=== PATIENT | female | born 1950 | race Caucasian/White ===

== ENCOUNTER 2019-01-15 19:57 | Emergency (ER) | payer MEDICARE, OTHER ==
[2019-01-15 20:08] VITALS: BP 135/78
--- NOTE | 2019-01-15 20:46 | EDM.PDOC ---
ED HPI GENERAL MEDICAL PROBLEM - General Chief Complaint: Abdominal Pain Stated Complaint: LOWER ABDOMINAL PAIN Time Seen by Provider: 01/15/19 20:15 Source of Information: Reports: Patient History Limitations: Reports: No Limitations - History of Present Illness INITIAL COMMENTS - FREE TEXT/NARRATIVE: Patient comes in the emergency department with right upper gastric pain. Patient states it started approximately 4 days ago. She denies it getting worse since the pain started she states that it is a palpable pain in her stay daily breath. Patient to her arm or lower externally. Radiation to the flank area. Patient states that she has been utilizing multiple canes at home to help with ambulation related to a back injury. She is awaiting for back surgery. She states that she's been leaning the cane on her right side of her abdomen to help with support when she gets tired. Patient denies any falls or other injuries. Denies any nausea, vomiting, diarrhea, SOB at rest, chest pain, or changes in vision or edema. Onset: Gradual Location: Reports: Abdomen Quality: Reports: Ache Severity: Mild Improves with: Reports: Immobilization Worsens with: Reports: Movement Associated Symptoms: Reports: No Other Symptoms Right Upper Anterior Abdomen Pain Score (Numeric/FACES): 6 - Related Data Allergies Allergy/AdvReac Type Severity Reaction Status Date / Time diclofenac sodium Allergy Hallucinati Verified 01/15/19 20:03 [From [employer]th[employer]] ons doxepin Allergy Rash Verified 01/15/19 20:03 meperidine HCl [From Demerol] Allergy Hallucinati Verified 01/15/19 20:03 ons misoprostol [From [employer]] Allergy Hallucinati Verified 01/15/19 20:03 ons pregabalin [From Lyrica] Allergy Hallucinati Verified 01/15/19 20:03 ons tramadol Allergy Rash Verified 01/15/19 20:03 Home Meds: Home Meds Acetaminophen [Tylenol Extra Strength] 1,000 mg PO Q6H PRN 02/22/15 [History] Allopurinol [Zyloprim] 300 mg PO DAILY 02/22/15 [History] Calcium Carbonate [Tums] 500 mg PO Q2HR PRN 02/22/15 [History] Docusate Sodium/Sennosides [Senokot-S] 1 each PO ASDIRECTED 02/22/15 [History] Hydrocodone/Acetaminophen [Hydrocodon-Acetaminophen 5-325] 1 each PO Q4H PRN 05/31 [History] Levothyroxine [Synthroid] 100 mcg PO ACBREAKFAST 02/22/15 [History] Loratadine [Claritin] 10 mg PO DAILY 02/22/15 [History] Prochlorperazine Maleate [Compazine] 10 mg PO Q6H PRN 02/22/15 [History] Ranitidine [Zantac] 75 mg PO DAILY 02/22/15 [History] Sulfamethoxazole/Trimethoprim [Bactrim Ds Tablet] 1 each PO BID 02/22/15 [ History] valACYclovir HCl [Valtrex] 500 mg PO BID 02/22/15 [History] Past Medical History Endocrine/Metabolic History: Reports: Hypothyroidism - Past Surgical History Musculoskeletal Surgical History: Reports: Other (See Below) Other Musculoskeletal Surgeries/Procedures:: back surgery Social & Family History - Tobacco Use Smoking Status *Q: Never Smoker - Recreational Drug Use Recreational Drug Use: No ED ROS GENERAL - Review of Systems Review Of Systems: See Below Constitutional: Reports: No Symptoms HEENT: Reports: No Symptoms Respiratory: Reports: No Symptoms Cardiovascular: Reports: No Symptoms Endocrine: Reports: No Symptoms GI/Abdominal: Reports: Abdominal Pain. Denies: Anorexia, Black Stool, Bloody Stool, Constipation, Diarrhea, Decreased Appetite, Distension, Flatus, Melena : Reports: No Symptoms Musculoskeletal: Reports: Back Pain (chronic since 1988), Muscle Pain Skin: Reports: No Symptoms Neurological: Reports: No Symptoms Psychiatric: Reports: No Symptoms Hematologic/Lymphatic: Reports: No Symptoms Immunologic: Reports: No Symptoms ED EXAM, GI/ABD - Physical Exam Exam: See Below Exam Limited By: No Limitations General Appearance: Alert, WD/WN, No Apparent Distress Neck: Normal Inspection, Supple, Non-Tender, Full Range of Motion Respiratory/Chest: No Respiratory Distress, Lungs Clear, Normal Breath Sounds, No Accessory Muscle Use, Chest Non-Tender Cardiovascular: Normal Peripheral Pulses, Regular Rate, Rhythm, No Edema GI/Abdominal Exam: Normal Bowel Sounds, Soft, No Organomegaly, No Distention, Pelvis Stable, Tender Extremities: Normal Inspection, Normal Range of Motion, Non-Tender, No Pedal Edema, Normal Capillary Refill Neurological: Alert, Oriented Psychiatric: Normal Affect, Normal Mood Skin Exam: Warm, Dry, Intact, Normal Color Course - Vital Signs Last Recorded V/S: Last Vital Signs Temp 36.1 C 01/15/19 20:05 Pulse 92 01/15/19 20:05 Resp 18 01/15/19 20:05 BP 135/78 01/15/19 20:05 Pulse Ox 95 01/15/19 20:05 - Orders/Labs/Meds Orders: Active Orders 24 hr Category Date Time Status Chest 1V Frontal [CR] Stat Exams 01/15/19 20:30 Taken AMYLASE [CHEM] Stat Lab 01/15/19 20:36 Received CBC WITH AUTO DIFF [HEME] Stat Lab 01/15/19 20:36 Results COMPREHENSIVE METABOLIC PN,CMP [CHEM] Stat Lab 01/15/19 20:36 Received LIPASE [CHEM] Stat Lab 01/15/19 20:36 Received SEDIMENTATION RATE AUTO [HEME] Stat Lab 01/15/19 20:36 Results UA W/MICROSCOPIC [URIN] Stat Lab 01/15/19 20:11 Received Labs: Laboratory Tests 01/15/19 Range/Units 20:36 WBC 6.3 (4.0-10.0) x10^3/uL RBC 3.90 L (4.00-5.50) x10^6/uL Hgb 11.3 L (12.0-16.0) g/dL Hct 35.2 (33.0-47.0) % MCV 90.3 (78.0-93.0) fL MCH 29.0 (26.0-32.0) pg MCHC 32.1 (32.0-36.0) g/dL RDW Coeff of Yamila 14.6 (10.0-15.0) % Plt Count 228 D (130-400) x10^3/uL Neut % (Auto) 39.2 L (50.0-80.0) % Lymph % (Auto) 48.6 (25.0-50.0) % Jasper % (Auto) 9.4 (2.0-11.0) % Eos % (Auto) 2.5 (0.0-4.0) % Baso % (Auto) 0.3 (0.2-1.2) % - Re-Assessments/Exams Free Text/Narrative Re-Assessment/Exam: 01/15/19 21:08 Pt states after passing some gas in the ER the discomfort has gotten better. She is ready to go home and put ice on the area and rest. Departure - Departure Time of Disposition: 21:20 Disposition: Home, Self-Care 01 Condition: Good Clinical Impression: Muscle pain - Discharge Information *PRESCRIPTION DRUG MONITORING PROGRAM REVIEWED*: Not Applicable *COPY OF PRESCRIPTION DRUG MONITORING REPORT IN PATIENT ALPA: Not Applicable Instructions: Muscle Pain, Adult Referrals: PCP,Unknown [Ordering Only Provider] - Forms: ED Department Discharge Additional Instructions: 1. rest 2. Can put ice or heat on the area 3-4 times a daily for 20 minutes at a time 3. Can take Ibuprofen or Tylenol for the discomfort 4. Try not to use the cane as a bracing point on that side of your abdomen. 5. Follow up with your PCP as needed 6. Your labs and xray did not have any abnormal findings. 7. Call with any questions or concerns. - Problem List Review Problem List Initiated/Reviewed/Updated: Yes - My Orders Last 24 Hours: My Active Orders 01/15/19 20:11 UA W/MICROSCOPIC [URIN] Stat 01/15/19 20:30 Chest 1V Frontal [CR] Stat 01/15/19 20:36 AMYLASE [CHEM] Stat CBC WITH AUTO DIFF [HEME] Stat COMPREHENSIVE METABOLIC PN,CMP [CHEM] Stat LIPASE [CHEM] Stat SEDIMENTATION RATE AUTO [HEME] Stat - Assessment/Plan Last 24 Hours: My Active Orders 01/15/19 20:11 UA W/MICROSCOPIC [URIN] Stat 01/15/19 20:30 Chest 1V Frontal [CR] Stat 01/15/19 20:36 AMYLASE [CHEM] Stat CBC WITH AUTO DIFF [HEME] Stat COMPREHENSIVE METABOLIC PN,CMP [CHEM] Stat LIPASE [CHEM] Stat SEDIMENTATION RATE AUTO [HEME] Stat Assessment:: 1. right side abdominal pain Plan: 1. Labs completed in ER. Results reviewed with the patient 2. Xray completed in the ER. Results reviewed with the patient 3.
[2019-01-15 21:10] LABS: CHLORIDE,CL 106 mmol/L (98-107); SODIUM,NA 144 mmol/L (136-145)
[2019-01-15 21:11] LABS: ANION GAP 14.8 mmol/L (10-20)
--- NOTE | 2019-01-16 09:29 | CR ---
[id number] RAD/RAD Chest PA or AP 1V EXAM: RAD Chest PA or AP 1V INDICATION: RIGHT SIDE CHEST/ABDOMEN PAIN. COMPARISON: February 22, 2015. DISCUSSION: Cardiomediastinal silhouette is stable in size and contour. No infiltrate, effusion, pneumothorax, or edema. Low lung volumes associated vascular crowding. IMPRESSION: No acute cardiopulmonary abnormality. Isaac Guzman DO 01/16/19 0927 Thank you for allowing us to participate in the care of your patient.
== END 2019-01-15 21:20 | disposition home or self-care (01) ==
LOC: VM.ED 19:57
DX: M79.10 Myalgia, unspecified site (principal); R10.11 Right upper quadrant pain; E03.9 Hypothyroidism, unspecified; Z79.899 Other long term (current) drug therapy; Z88.6 Allergy status to analgesic agent; Z88.8 Allergy status to other drugs, medicaments and biological substances
CPT/HCPCS: 36415; 71045; 80053; 81001; 82150; 83690; 85025; 85652; 99284-25

== ENCOUNTER 2019-03-07 09:21 | Emergency (ER) | payer MEDICARE, OTHER ==
[2019-03-07 09:39] VITALS: BP 124/72
--- NOTE | 2019-03-07 09:53 | EDM.PDOC ---
ED HPI GENERAL MEDICAL PROBLEM - General Chief Complaint: Respiratory Problem Stated Complaint: COUGH, YELLOW PHLEGM, SORE THROAT, NAUSEA Time Seen by Provider: 03/07/19 09:40 Source of Information: Reports: Patient History Limitations: Reports: No Limitations - History of Present Illness INITIAL COMMENTS - FREE TEXT/NARRATIVE: Patient comes into the emergency department with cough and sore throat. Patient states her symptoms started yesterday. Approximately 2 days ago she received a Pneumovax vaccine and she noted that yesterday she began to have a sore throat and a cough. She states that it has continued throughout the night and has not gotten any worse but has also not gotten any better. She denies any fever, nausea, or vomiting but states that the cough is irritating. Patient also states that she has been coughing up some yellow phlegm approximately 2-3 times. Patient denies any chest pain, shortness of breath, numbness tingling, GI upset, lower extremity swelling. Onset: Gradual Quality: Reports: Other Improves with: Reports: None Worsens with: Reports: None Associated Symptoms: Reports: No Other Symptoms - Related Data Allergies Allergy/AdvReac Type Severity Reaction Status Date / Time diclofenac sodium Allergy Hallucinati Verified 03/07/19 09:40 [From [employer]] ons doxepin Allergy Rash Verified 03/07/19 09:40 meperidine HCl [From Demerol] Allergy Hallucinati Verified 03/07/19 09:40 ons misoprostol [From [employer]] Allergy Hallucinati Verified 03/07/19 09:40 ons pregabalin [From Lyrica] Allergy Hallucinati Verified 03/07/19 09:40 ons tramadol Allergy Rash Verified 03/07/19 09:40 Home Meds: Home Meds Acetaminophen [Tylenol Extra Strength] 1,000 mg PO Q6H PRN 02/22/15 [History] Allopurinol [Zyloprim] 300 mg PO DAILY 02/22/15 [History] Calcium Carbonate [Tums] 500 mg PO Q2HR PRN 02/22/15 [History] Docusate Sodium/Sennosides [Senokot-S] 1 each PO ASDIRECTED 02/22/15 [History] Hydrocodone/Acetaminophen [Hydrocodon-Acetaminophen 5-325] 1 each PO Q4H PRN 06/ 09/15 [History] Levothyroxine [Synthroid] 100 mcg PO ACBREAKFAST 02/22/15 [History] Loratadine [Claritin] 10 mg PO DAILY 02/22/15 [History] Prochlorperazine Maleate [Compazine] 10 mg PO Q6H PRN 02/22/15 [History] Ranitidine [Zantac] 75 mg PO DAILY 02/22/15 [History] Sulfamethoxazole/Trimethoprim [Bactrim Ds Tablet] 1 each PO BID 02/22/15 [ History] valACYclovir HCl [Valtrex] 500 mg PO BID 02/22/15 [History] Benzonatate [Tessalon Perle] 100 mg PO TID PRN #20 capsule 03/07/19 [Rx] Past Medical History Endocrine/Metabolic History: Reports: Hypothyroidism - Past Surgical History Musculoskeletal Surgical History: Reports: Other (See Below) Other Musculoskeletal Surgeries/Procedures:: back surgery ED ROS GENERAL - Review of Systems Review Of Systems: See Below Constitutional: Reports: No Symptoms HEENT: Reports: No Symptoms Respiratory: Reports: Cough, Sputum Cardiovascular: Reports: No Symptoms Endocrine: Reports: No Symptoms GI/Abdominal: Reports: No Symptoms : Reports: No Symptoms Musculoskeletal: Reports: No Symptoms Skin: Reports: No Symptoms Neurological: Reports: No Symptoms Psychiatric: Reports: No Symptoms Hematologic/Lymphatic: Reports: No Symptoms ED EXAM, GENERAL - Physical Exam Exam: See Below Exam Limited By: No Limitations General Appearance: Alert, WD/WN, No Apparent Distress Respiratory/Chest: No Respiratory Distress, Lungs Clear, Normal Breath Sounds, No Accessory Muscle Use, Chest Non-Tender. No: Respiratory Distress, Decreased Breath Sounds, Wheezing, Accessory Muscle Use Cardiovascular: Normal Peripheral Pulses, Regular Rate, Rhythm, No Edema Extremities: Normal Inspection, Normal Range of Motion, Non-Tender, Normal Capillary Refill Neurological: Alert, Oriented, Normal Gait Psychiatric: Normal Affect, Normal Mood Skin Exam: Warm, Dry, Intact, Normal Color Course - Vital Signs Last Recorded V/S: Last Vital Signs Temp 36.4 C 03/07/19 09:28 Pulse 86 03/07/19 09:28 Resp 16 03/07/19 09:28 BP 124/72 03/07/19 09:28 Pulse Ox 99 03/07/19 09:28 Departure - Departure Time of Disposition: 09:50 Disposition: Home, Self-Care 01 Condition: Good Clinical Impression: Viral upper respiratory illness - Discharge Information *PRESCRIPTION DRUG MONITORING PROGRAM REVIEWED*: Not Applicable *COPY OF PRESCRIPTION DRUG MONITORING REPORT IN PATIENT ALPA: Not Applicable Prescriptions: Benzonatate [Tessalon Perle] 100 mg PO TID PRN #20 capsule PRN Reason: Cough Instructions: Viral Respiratory Infection, [id number] Referrals: Kimmy Hernandez MD [Primary Care Provider] - Forms: ED Department Discharge Additional Instructions: 1. rest 2. increase your water intake 3. Can take the Tessalon Perle 3 times a day for cough and sore throat 4. You are still able to use the cough medication you are currently using. Just ensure you are following the recommendation/dosing instructions 5. Activity and diet as tolerated 6. Follow up as needed 7. Call with questions or concerns - Problem List Review Problem List Initiated/Reviewed/Updated: Yes - Assessment/Plan Assessment:: 1. viral illness Plan: 1. Tessalon Perle script given to help with cough and sore throat 2. Education provided regarding viral illness, OTC medication, activity and diet , and follow up care 3. All questions and concerns were addressed prior to discharge.
== END 2019-03-07 09:58 | disposition home or self-care (01) ==
LOC: VM.ED 09:21
DX: J06.9 Acute upper respiratory infection, unspecified (principal); E03.9 Hypothyroidism, unspecified; Z88.5 Allergy status to narcotic agent; Z88.8 Allergy status to other drugs, medicaments and biological substances; Z79.899 Other long term (current) drug therapy
CPT/HCPCS: 99282-GF; 99283

== ENCOUNTER 2019-06-16 10:03 | Emergency (ER) | payer MEDICARE, OTHER ==
--- NOTE | 2019-06-16 11:04 | EDM.PDOC ---
ED HPI GENERAL MEDICAL PROBLEM - General Stated Complaint: ER Time Seen by Provider: 06/16/19 10:50 Source of Information: Reports: Patient History Limitations: Reports: Altered Mental Status - History of Present Illness INITIAL COMMENTS - FREE TEXT/NARRATIVE: Pt. presents to ER via EMS. Pt. has developed acute altered mental status over the past 24 hours. Pt. Underwent a spinal fusion on 03/26/19 and had a post op ileus/bowel perforation and underwent R hemicolectomy with ileostomy on . She had a complicated course and issues with wound closure and required an wound vac. She convalesced at a care home in [place] and was discharged home . Brother states that she has been doing well and was discharged from physical therapy. Brother states that over the past 3 days, pt. has been experiencing vomiting, cramping, and decreased appetite. She has also had some intermittent cough. He feels as though she has not been eating or drinking as well as she should, but was able to feed herself yesterday. Brother states that when he checked on her this AM, she was exhibiting a decreased LOC and confusion. She was unable to follow commands for EMS. He states that her mental status was normal yesterday. He denies any trauma. No recent falls that he is aware of. According to her clinic chart, she had labs yesterday which were all within normal limits. BUN at that time was 14, creat. was 0.77. Onset: Today Location: Reports: Generalized Associated Symptoms: Reports: Confusion, Fever/Chills Treatments TAX COLLECTION COORDINATOR: Reports: Acetaminophen - Related Data Allergies Allergy/AdvReac Type Severity Reaction Status Date / Time allopurinol Allergy Other Verified 06/16/19 11:01 amitriptyline Allergy Other Verified 06/16/19 11:01 diclofenac sodium Allergy Hallucinati Verified 06/16/19 11:01 [From Arthrotec] ons doxepin Allergy Rash Verified 06/16/19 11:01 duloxetine [From Cymbalta] Allergy Other Verified 06/16/19 11:01 meperidine HCl [From Demerol] Allergy Hallucinati Verified 06/16/19 11:01 ons misoprostol [From Arthrotec] Allergy Hallucinati Verified 06/16/19 11:01 ons pregabalin [From Lyrica] Allergy Hallucinati Verified 06/16/19 11:01 ons prochlorperazine Allergy Hives Verified 06/16/19 11:01 [From Compazine] sulfamethoxazole Allergy Rash Verified 06/16/19 11:01 tramadol Allergy Rash Verified 06/16/19 11:01 Home Meds: Home Meds Acetaminophen [Tylenol Extra Strength] 1,000 mg PO Q6H PRN 02/22/15 [History] Allopurinol [Zyloprim] 300 mg PO DAILY 02/22/15 [History] Calcium Carbonate [Tums] 500 mg PO Q2HR PRN 02/22/15 [History] Docusate Sodium/Sennosides [Senokot-S] 1 each PO ASDIRECTED 02/22/15 [History] Hydrocodone/Acetaminophen [Hydrocodon-Acetaminophen 5-325] 1 each PO Q4H PRN 05/31 [History] Levothyroxine [Synthroid] 100 mcg PO ACBREAKFAST 02/22/15 [History] Loratadine [Claritin] 10 mg PO DAILY 02/22/15 [History] Prochlorperazine Maleate [Compazine] 10 mg PO Q6H PRN 02/22/15 [History] Ranitidine [Zantac] 75 mg PO DAILY 02/22/15 [History] Sulfamethoxazole/Trimethoprim [Bactrim Ds Tablet] 1 each PO BID 02/22/15 [ History] valACYclovir HCl [Valtrex] 500 mg PO BID 02/22/15 [History] Benzonatate [Tessalon Perle] 100 mg PO TID PRN #20 capsule 03/07/19 [Rx] Past Medical History Endocrine/Metabolic History: Reports: Hypothyroidism - Past Surgical History Musculoskeletal Surgical History: Reports: Other (See Below) Other Musculoskeletal Surgeries/Procedures:: back surgery ED ROS GENERAL - Review of Systems Review Of Systems: See Below Constitutional: Reports: Fever, Chills, Weakness HEENT: Reports: No Symptoms Respiratory: Reports: Cough, Sputum Cardiovascular: Reports: No Symptoms Endocrine: Reports: No Symptoms GI/Abdominal: Reports: Abdominal Pain, Decreased Appetite, Nausea, Vomiting, Other (See HPI) : Reports: No Symptoms Musculoskeletal: Reports: No Symptoms Skin: Reports: No Symptoms Neurological: Reports: No Symptoms Psychiatric: Reports: No Symptoms Hematologic/Lymphatic: Reports: No Symptoms Immunologic: Reports: No Symptoms ED EXAM, GENERAL - Physical Exam Exam: See Below Exam Limited By: No Limitations General Appearance: Alert, WD/WN, No Apparent Distress Eye Exam: Bilateral Eye: EOMI, Normal Fundi, Normal Inspection, PERRL Throat/Mouth: Normal Inspection, Normal Lips, Normal Teeth, Normal Gums, Normal Oropharynx, No Airway Compromise Head: Atraumatic, Normocephalic Neck: Normal Inspection, Supple, Non-Tender, Full Range of Motion Respiratory/Chest: No Respiratory Distress, No Accessory Muscle Use, Chest Non- Tender, Decreased Breath Sounds, Crackles Cardiovascular: Normal Peripheral Pulses, Regular Rate, Rhythm, No Edema, No Gallop, No JVD, No Murmur, No Rub Peripheral Pulses: 4+: Radial (R) GI/Abdominal: Soft, No Organomegaly, No Distention, No Abnormal Bruit, No Mass, Other (diminished bowel sounds) (Female) Exam: Vaginal Discharge, Other (yellowish vaginal discharge noted.) Rectal (Female) Exam: Deferred Back Exam: Normal Inspection, Full Range of Motion Extremities: Normal Inspection, Normal Range of Motion, Non-Tender, No Pedal Edema, Normal Capillary Refill Neurological: CN II-XII Intact, Normal Cognition, No Motor/Sensory Deficits, Confused, Slow to Respond, Other (responds to verbal stimuli) Psychiatric: Normal Affect, Normal Mood Skin Exam: Warm, Dry, Intact, Normal Color, No Rash Lymphatic: No Adenopathy EKG INTERPRETATION Rhythm: NSR Bryant: Normal P-Wave: Present QRS: Normal ST-T: Normal QT: Normal Course - Vital Signs Last Recorded V/S: Last Vital Signs Temp 38.0 C 06/16/19 11:48 Pulse 113 H 06/16/19 11:48 Resp 28 H 06/16/19 11:48 BP 141/72 H 06/16/19 11:48 Pulse Ox 91 L 06/16/19 11:48 - Orders/Labs/Meds Orders: Active Orders 24 hr Category Date Time Status EKG Documentation Completion [RC] STAT Care 06/16/19 10:13 Inactive CULTURE BLOOD [BC] Stat Lab 06/16/19 10:42 Results CULTURE BLOOD [BC] Stat Lab 06/16/19 10:52 Received CULTURE GENITAL [RM] Stat Lab 06/16/19 10:42 Received Sodium Chloride 0.9% [Saline Flush] Med 10/01/19 12:24 Ordered 10 ml FLUSH ASDIRECTED PRN Vancomycin 1.25 gm Med 06/16/19 12:26 Ordered Sodium Chloride 0.9% [Normal Saline (AdvBag)] 250 ml IV STAT Blood Culture x2 Reflex Set [OM.PC] Stat Oth 06/16/19 10:15 Ordered Peripheral IV Insertion Adult [OM.PC] Routine Oth 06/16/19 12:24 Ordered Medication Orders Vancomycin HCl 1.25 gm/ Sodium (Chloride) 250 mls @ 200 mls/hr IV STAT ONE Stop: 06/16/19 13:40 Sodium Chloride (Saline Flush) 10 ml FLUSH ASDIRECTED PRN PRN Reason: Keep Vein Open Labs: Laboratory Tests 06/16/19 06/16/19 06/16/19 Range/Units 10:25 10:25 10:42 WBC 22.9 H* (4.0-10.0) x10^3/uL RBC 5.08 (4.00-5.50) x10^6/uL Hgb 13.7 D (12.0-16.0) g/dL Hct 40.2 (33.0-47.0) % MCV 79.1 D (78.0-93.0) fL MCH 27.0 (26.0-32.0) pg MCHC 34.1 (32.0-36.0) g/dL RDW Coeff of Yamila 16.4 H (10.0-15.0) % Plt Count 601 H D (130-400) x10^3/uL Add Manual Diff Yes Neutrophils % (Manual) 80 (50-80) % Band Neutrophils % 12 H (0-6) % Lymphocytes % (Manual) 6 L (25-50) % Monocytes % (Manual) 2 (2-11) % Platelet Estimate Marked inc H Microcytosis 1+ slight H PT (10.0-12.8) SEC INR (2.0-3.5) Sodium (69-191) mmol/L Potassium (1.5-9.9) mmol/L Chloride (54-184) mmol/L Carbon Dioxide (21-32) mmol/L Anion Gap (10-20) mmol/L BUN (7-18) mg/dL Creatinine (0.55-1.02) mg/dL Est Cr Clr Drug Dosing Estimated GFR (MDRD) Glucose (74-106) mg/dL Lactic Acid (0.4-2.0) mmol/L Calcium (8.5-10.1) mg/dL Corrected Calcium (8.5-10.1) mg/dL Phosphorus (2.6-4.7) mg/dL Magnesium (1.8-2.4) mg/dL Total Bilirubin (0.2-1.0) mg/dL AST (15-37) U/L ALT (14-59) U/L Alkaline Phosphatase (46-116) U/L Troponin I (<=0.056) ng/mL C-Reactive Protein (<=0.9) mg/dL Total Protein (6.4-8.2) g/dL Albumin (3.4-5.0) g/dL Globulin Albumin/Globulin Ratio TSH, Ultra Sensitive (0.358-3.74) uIU/mL Urine Color Yellow (YELLOW) Urine Appearance Turbid H (CLEAR) Urine pH 5.0 (5.0-8.0) Ur Specific Wisdom 1.020 Urine Protein 100 H (NEGATIVE) mg/dL Urine Glucose (UA) Negative (NEGATIVE) mg/dL Urine Ketones Negative (NEGATIVE) mg/dL Urine Occult Blood Small H (NEGATIVE) Urine Nitrite Negative (NEGATIVE) Urine Bilirubin Negative (NEGATIVE) Urine Urobilinogen 0.2 (0.2) EU/dL Ur Leukocyte Esterase Negative (NEGATIVE) Urine RBC 5-10 H (NOT SEEN) /HPF Urine WBC 0-5 (NOT SEEN) /HPF Ur Squamous Epith Cells Rare (NEGATIVE) /HPF Calcium Oxalate Crystal Moderate H (NEGATIVE) /HPF Uric Acid Crystals Moderate H (NEGATIVE) /HPF Amorphous Sediment Moderate Urine Bacteria Not seen (NEGATIVE) /HPF Hyaline Casts Many H (NEGATIVE) /HPF Urine Mucus Not seen (NEGATIVE) /LPF Urine Opiates Screen Negative (NEGATIVE) Ur Buprenorphine Scrn Negative (NEGATIVE) Ur Oxycodone Screen Negative (NEGATIVE) Ur EDDP (Meth Metab) Negative (NEGATIVE) Urine Methadone Screen Negative (NEGATIVE) Ur Barbiturates Screen Negative (NEGATIVE) Ur Tricyclics Screen Negative (NEGATIVE) Ur Phencyclidine Scrn Negative (NEGATIVE) Ur Amphetamine Screen Negative (NEGATIVE) U Methamphetamines Scrn Negative (NEGATIVE) Urine MDMA Screen Negative (NEGATIVE) U Benzodiazepines Scrn Negative (NEGATIVE) U Cocaine Metab Screen Negative (NEGATIVE) U Marijuana (THC) Screen Negative (NEGATIVE) Ethyl Alcohol (0-3) mg/dL 06/16/19 06/16/19 06/16/19 Range/Units 10:42 10:42 10:42 WBC (4.0-10.0) x10^3/uL RBC (4.00-5.50) x10^6/uL Hgb (12.0-16.0) g/dL Hct (33.0-47.0) % MCV (78.0-93.0) fL MCH (26.0-32.0) pg MCHC (32.0-36.0) g/dL RDW Coeff of Yamila (10.0-15.0) % Plt Count (130-400) x10^3/uL Add Manual Diff Neutrophils % (Manual) (50-80) % Band Neutrophils % (0-6) % Lymphocytes % (Manual) (25-50) % Monocytes % (Manual) (2-11) % Platelet Estimate Microcytosis PT 12.6 (10.0-12.8) SEC INR 1.1 L (2.0-3.5) Sodium 130 L (69-191) mmol/L Potassium 4.3 (1.5-9.9) mmol/L Chloride 91 L (54-184) mmol/L Carbon Dioxide 17 L D (21-32) mmol/L Anion Gap 26.3 H (10-20) mmol/L BUN 137 H* D (7-18) mg/dL Creatinine 2.8 H D (0.55-1.02) mg/dL Est Cr Clr Drug Dosing TNP Estimated GFR (MDRD) 17 Glucose 180 H (74-106) mg/dL Lactic Acid 3.1 H* (0.4-2.0) mmol/L Calcium 11.0 H D (8.5-10.1) mg/dL Corrected Calcium 12.28 H* D (8.5-10.1) mg/dL Phosphorus 4.4 (2.6-4.7) mg/dL Magnesium 3.6 H (1.8-2.4) mg/dL Total Bilirubin 1.3 H (0.2-1.0) mg/dL AST 54 H (15-37) U/L ALT 44 (14-59) U/L Alkaline Phosphatase 232 H (46-116) U/L Troponin I < 0.017 (<=0.056) ng/mL C-Reactive Protein 40.9 H (<=0.9) mg/dL Total Protein 8.8 H (6.4-8.2) g/dL Albumin 2.4 L (3.4-5.0) g/dL Globulin 6.4 Albumin/Globulin Ratio 0.38 TSH, Ultra Sensitive 0.190 L (0.358-3.74) uIU/mL Urine Color (YELLOW) Urine Appearance (CLEAR) Urine pH (5.0-8.0) Ur Specific Wisdom Urine Protein (NEGATIVE) mg/dL Urine Glucose (UA) (NEGATIVE) mg/dL Urine Ketones (NEGATIVE) mg/dL Urine Occult Blood (NEGATIVE) Urine Nitrite (NEGATIVE) Urine Bilirubin (NEGATIVE) Urine Urobilinogen (0.2) EU/dL Ur Leukocyte Esterase (NEGATIVE) Urine RBC (NOT SEEN) /HPF Urine WBC (NOT SEEN) /HPF Ur Squamous Epith Cells (NEGATIVE) /HPF Calcium Oxalate Crystal (NEGATIVE) /HPF Uric Acid Crystals (NEGATIVE) /HPF Amorphous Sediment Urine Bacteria (NEGATIVE) /HPF Hyaline Casts (NEGATIVE) /HPF Urine Mucus (NEGATIVE) /LPF Urine Opiates Screen (NEGATIVE) Ur Buprenorphine Scrn (NEGATIVE) Ur Oxycodone Screen (NEGATIVE) Ur EDDP (Meth Metab) (NEGATIVE) Urine Methadone Screen (NEGATIVE) Ur Barbiturates Screen (NEGATIVE) Ur Tricyclics Screen (NEGATIVE) Ur Phencyclidine Scrn (NEGATIVE) Ur Amphetamine Screen (NEGATIVE) U Methamphetamines Scrn (NEGATIVE) Urine MDMA Screen (NEGATIVE) U Benzodiazepines Scrn (NEGATIVE) U Cocaine Metab Screen (NEGATIVE) U Marijuana (THC) Screen (NEGATIVE) Ethyl Alcohol < 3 (0-3) mg/dL Meds: Medications Generic Name Dose Route Start Last Admin Trade Name Freq PRN Reason Stop Dose Admin Vancomycin HCl 1.25 gm/ Sodium 250 mls @ 200 mls/hr 06/16/19 12:26 Chloride IV 06/16/19 13:40 STAT ONE Sodium Chloride 10 ml 06/16/19 12:24 Saline Flush FLUSH ASDIRECTED PRN Keep Vein Open Discontinued Medications Generic Name Dose Route Start Last Admin Trade Name Freq PRN Reason Stop Dose Admin Piperacillin Sod/Tazobactam 100 mls @ 200 mls/hr 06/16/19 11:20 06/16/19 11: 30 Sod 4.5 gm/ Sodium Chloride IV 06/16/19 11:49 200 mls/hr STAT ONE Administration Iopamidol 100 ml 06/16/19 11:32 06/16/19 11:35 Isovue-300 (61%) IVPUSH 06/16/19 11:33 100 ml ONETIME ONE Administration - Radiology Interpretation Free Text/Narrative:: chest x-ray is negative for acute pathology CT brain without contast was negative CT abdomen and pelvis was obtained. No obvious intrabominal or intrapelvic pathology noted. Evidence of atelectasis, pneumonia, and/or aspiration pneumonia noted. - Re-Assessments/Exams Free Text/Narrative Re-Assessment/Exam: Pt. was given a fluid bolus of 1 liter and then started on normal saline at 250ml/hr. She was given zosyn 4.5 gm IV. She was also started on Vancomycin 1.25gm IV, given her recent hospitalizations and recent care home stay. She was maintaining O2 saturation of around 90% on O2 per NC at 3/min. She was alert to verbal stimuli, and was able to relate that she was having some abdominal discomfort and felt weak. To note, she was retaining urine, and was cathed for approx. 1000ml when she was cathed for UA. Decision was made to place a kolb catheter given her renal failure and urinary retention. She was also noted to have some purulent vaginal discharge noted. This was cultured. Departure - Departure Time of Disposition: 12:39 Disposition: DC/Tfer to [facility] Preliminary Cause of *Q: Sepsis & Multi System Organ Failure Clinical Impression: Acute renal failure, Aspiration pneumonia - Discharge Information Referrals: Kimmy Hernandez MD [Primary Care Provider] - - Problem List Review Problem List Initiated/Reviewed/Updated: Yes - My Orders Last 24 Hours: My Active Orders 06/16/19 10:13 EKG Documentation Completion [RC] STAT 06/16/19 10:15 Blood Culture x2 Reflex Set [OM.PC] Stat 06/16/19 10:42 CULTURE BLOOD [BC] Stat CULTURE GENITAL [RM] Stat 06/16/19 10:52 CULTURE BLOOD [BC] Stat 06/16/19 12:24 Sodium Chloride 0.9% [Saline Flush] 10 ml FLUSH ASDIRECTED PRN Peripheral IV Insertion Adult [OM.PC] Routine 06/16/19 12:26 Vancomycin 1.25 gm Sodium Chloride 0.9% [Normal Saline (AdvBag)] 250 ml IV STAT - Assessment/Plan Last 24 Hours: My Active Orders 06/16/19 10:13 EKG Documentation Completion [RC] STAT 06/16/19 10:15 Blood Culture x2 Reflex Set [OM.PC] Stat 06/16/19 10:42 CULTURE BLOOD [BC] Stat CULTURE GENITAL [RM] Stat 06/16/19 10:52 CULTURE BLOOD [BC] Stat 06/16/19 12:24 Sodium Chloride 0.9% [Saline Flush] 10 ml FLUSH ASDIRECTED PRN Peripheral IV Insertion Adult [OM.PC] Routine 06/16/19 12:26 Vancomycin 1.25 gm Sodium Chloride 0.9% [Normal Saline (AdvBag)] 250 ml IV STAT Plan: Pt. will be transferred to [facility] in [place]. I spoke with Dr. Garrison who accepts the patient in transfer. She will be transported via [facility] ground ambulance. Continue IV NS and antibiotics enroute. All questions were answered.
[2019-06-16] MEDS ORDERED: Piperacillin/Tazobactam 4.5 GM in Sodium Chloride 0.9% 100 ML IV ONE (11:20)
[2019-06-16] MEDS ORDERED: Iopamidol 612 MG/ML 100 ML Bottle IVPUSH ONE (11:32)
--- NOTE | 2019-06-16 11:38 | CR ---
[id number] RAD/RAD Chest PA or AP 1V EXAM: RAD Chest PA or AP 1V INDICATION: CONFUSION. COMPARISON: January 15, 2019 DISCUSSION: Cardiomediastinal silhouette is normal in size and contour. No infiltrate, effusion, pneumothorax, or edema. IMPRESSION: No acute cardiopulmonary abnormality. Isaac Guzman DO 06/16/19 1137 Thank you for allowing us to participate in the care of your patient.
[2019-06-16 11:47] LABS: CHLORIDE,CL 91 mmol/L (54-184); SODIUM,NA 130 mmol/L (69-191)
[2019-06-16 11:49] LABS: ANION GAP 26.3 mmol/L (10-20)
[2019-06-16 11:58] LABS: BARBITURATE SCREEN,URINE NEGATIVE (NEGATIVE); BENZODIAZEPINES SCREEN,URINE NEGATIVE (NEGATIVE); EDDP,URINE SCREEN NEGATIVE (NEGATIVE); METHAMPHETAMINE SCREEN, URINE NEGATIVE (NEGATIVE); TCA SCREEN,URINE NEGATIVE (NEGATIVE); THC SCREEN,URINE 50 NG/ML NEGATIVE (NEGATIVE)
--- NOTE | 2019-06-16 12:05 | CT ---
[id number] CT/CT Head WO IV EXAM: CT Head WO IV CLINICAL DATA: Altered mental status. COMPARISON STUDY: None FINDINGS: No intracranial hemorrhage, extra-axial fluid collection, mass, or acute ischemia. No hydrocephalus. Paranasal sinusitis with air-fluid level. Near complete opacification of left mastoid air cells from mastoid effusion. IMPRESSION: No acute intracranial findings. Acute paranasal sinusitis. Left mastoid effusion. Vic Palomino MD 06/16/19 1945 Thank you for allowing us to participate in the care of your patient.
--- NOTE | 2019-06-16 12:11 | CT ---
[id number] CT/CT Abdomen Pelvis W IV EXAM: CT Abdomen Pelvis W IV CLINICAL DATA: FEVER,DECREASED LOC,VAGINAL DISCHARGE. COMPARISON STUDY: None. FINDINGS: Findings are within limitation of patient motion artifact and streak artifact from the spinal fusion hardware. Bibasal parenchymal opacification in both lower lobes, left greater than right. Colonic diverticulosis. No evidence of acute diverticulitis there appears to be a left lower quadrant enterostomy. Postsurgical change from bowel resection in the lower abdomen. No small bowel obstruction or inflammation. No free fluid, fluid collections, lymphadenopathy, pneumatosis, pneumoperitoneum recent. Ritchie catheter in urinary bladder. Uterus and adnexal regions are unremarkable. Scattered changes of spondylosis the spine. No fracture or osseous lesion. IMPRESSION: No acute findings in the abdomen or pelvis. Possible changes of atelectasis, pneumonia, and/or aspiration in both lung bases, described above. Vic Palomino MD 06/16/19 1210 Thank you for allowing us to participate in the care of your patient.
[2019-06-16] MEDS ORDERED: Sodium Chloride 0.9% 10 ML Syringe FLUSH PRN (12:24)
[2019-06-16 12:50] VITALS: BP 133/68; PULSE 119
== END 2019-06-16 12:55 | disposition short-term general hospital (02) ==
LOC: VM.ED 10:03
DX: J69.0 Pneumonitis due to inhalation of food and vomit (principal); N17.9 Acute kidney failure, unspecified; E03.9 Hypothyroidism, unspecified; Z88.8 Allergy status to other drugs, medicaments and biological substances; Z88.2 Allergy status to sulfonamides; Z88.1 Allergy status to other antibiotic agents; Z79.899 Other long term (current) drug therapy
CPT/HCPCS: 36415; 70450; 71045; 74177; 80053; 80305-QW; 81001; 83605; 83735; 84100; 84443; 84484; 85025; 85610; 86140; 87040; 87070; 87077; 93010; 96365; 96367; 99284-GF; 99285-25; G0480; J2543; J3370; J7050; Q9967